=== PATIENT | female | born 1965 | race American Indian/Alaskan Native ===

== ENCOUNTER 2021-07-31 19:29 | Emergency (ER) | payer SELFPAY ==
--- NOTE | 2021-07-31 21:52 | Emergency Department Report ---
ED General Adult HPI - General Chief complaint: Pain General Stated complaint: TOTAL BODY PAIN Time Seen by Provider: 07/31/21 20:27 Source: patient, EMS Mode of arrival: Wheelchair Limitations: No Limitations - History of Present Illness Initial comments: 55-year-old F [place] female with a BMI and past medical history of hypertension and reported fibromyalgia reports from the department complaining of diffuse aches and pains after being out of her fibromyalgia medicine. States that she had her Cymbalta and her muscle relaxer she can get out of the pain crisis. But also states she is not yet found a primary care provider since relocating here in February and is run out of some of her other medications and seeks a refill. Reports no new symptoms as this is her typical emergent fibromyalgia pain. Denies any any chest pain palpitation. No nausea, no vomiting, no fever, chills, sweats. No chest pain no palpitations no hemoptysis, hematemesis hematochezia. -: Gradual Radiation: non-radiation Severity scale (0 -10): 10 Quality: dull Consistency: constant Worsens with: none Associated Symptoms: denies other symptoms Treatments Prior to Arrival: none - Related Data Previous Rx's Medication Instructions Recorded Last Taken Type DULoxetine [Cymbalta] 30 mg PO QDAY #20 capsule 07/31/21 Unknown Rx amLODIPine 5 mg PO DAILY #20 tab 07/31/21 Unknown Rx methOCARBAMOL [Robaxin TAB] 500 mg PO BID #20 tab 07/31/21 Unknown Rx Allergies Allergy/AdvReac Type Severity Reaction Status Date / Time Sulfa (Sulfonamide Allergy Hives Verified 07/31/21 19:49 Antibiotics) codeine AdvReac Unknown Verified 07/31/21 19:49 ED Review of Systems ROS: Stated complaint: TOTAL BODY PAIN Other details as noted in HPI Comment: All other systems reviewed and negative ED Past Medical Hx - Past Medical History Hx Hypertension: Yes Hx Diabetes: Yes Hx of Cancer: Yes (lymphoma- in remission) Hx Asthma: Yes Additional medical history: fibromyalgia - Surgical History Past Surgical History?: Yes Additional Surgical History: back, L knee, hysterectomy, port - Medications Home Medications: Home Medications Medication Instructions Recorded Confirmed Last Taken Type DULoxetine [Cymbalta] 30 mg PO QDAY #20 capsule 07/31/21 Unknown Rx amLODIPine 5 mg PO DAILY #20 tab 07/31/21 Unknown Rx methOCARBAMOL [Robaxin TAB] 500 mg PO BID #20 tab 07/31/21 Unknown Rx ED Physical Exam - General Limitations: No Limitations General appearance: alert, in no apparent distress - Head Head exam: Present: atraumatic, normocephalic - Eye Eye exam: Present: normal appearance, PERRL, EOMI - ENT ENT exam: Present: normal exam, normal orophraynx, mucous membranes moist - Neck Neck exam: Present: normal inspection - Respiratory Respiratory exam: Present: normal lung sounds bilaterally. Absent: respiratory distress, wheezes, rales, rhonchi - Cardiovascular Cardiovascular Exam: Present: regular rate, normal rhythm. Absent: systolic murmur, diastolic murmur, rubs, gallop - GI/Abdominal GI/Abdominal exam: Present: soft, normal bowel sounds - Extremities Exam Extremities exam: Present: normal inspection, normal capillary refill - Back Exam Back exam: Present: normal inspection. Absent: CVA tenderness (R), CVA tenderness (L) - Neurological Exam Neurological exam: Present: alert, oriented X3, CN II-XII intact - Psychiatric Psychiatric exam: Present: normal affect, normal mood - Skin Skin exam: Present: warm, dry, intact, normal color. Absent: rash ED Course Vital Signs 07/31/21 19:34 Temperature 98.2 F Pulse Rate 101 H Respiratory 18 Rate Blood Pressure 154/89 [Left] O2 Sat by Pulse 99 Oximetry Critical care attestation.: If time is entered above; I have spent that time in minutes in the direct care of this critically ill patient, excluding procedure time. ED Disposition Clinical Impression: Chronic pain disorder Disposition: HOME / SELF CARE / HOMELESS Is pt being admited?: No Does the pt Need Aspirin: No Condition: Stable Instructions: Myofascial Pain Syndrome and Fibromyalgia, Acupuncture, Chronic Pain, Adult, Pain Medicine Instructions, [id number] Prescriptions: amLODIPine 5 mg PO DAILY #20 tab DULoxetine [Cymbalta] 30 mg PO QDAY #20 capsule methOCARBAMOL [Robaxin TAB] 500 mg PO BID #20 tab Referrals: MISSAEL HOLMAN MD [Staff Physician] - 3-5 Days
[2021-07-31 22:41] VITALS: BP 157/78
== END 2021-07-31 22:42 | disposition home or self-care (01) ==
LOC: ED 19:29
DX: M79.18 Myalgia, other site (principal); G89.29 Other chronic pain; I10 Essential (primary) hypertension; E11.9 Type 2 diabetes mellitus without complications; J45.909 Unspecified asthma, uncomplicated; Z90.710 Acquired absence of both cervix and uterus; Z79.899 Other long term (current) drug therapy; Z88.2 Allergy status to sulfonamides; Z88.5 Allergy status to narcotic agent
CPT/HCPCS: 99283